=== PATIENT | female | born 1960 | race Caucasian/White ===

== ENCOUNTER 2018-03-11 10:01 | Inpatient (IN) | END 2018-03-13 08:20 | disposition home or self-care (01) | DRG 581 ==

== ENCOUNTER 2018-03-13 12:34 | Emergency (ER) | END 2018-03-13 14:13 | disposition home or self-care (01) ==

== ENCOUNTER 2018-03-21 09:34 | Emergency (ER) | END 2018-03-21 10:14 | disposition home or self-care (01) ==